=== PATIENT | female | born 1955 | race Caucasian/White ===

== ENCOUNTER → 2020-06-02 | Outpatient (CLI) | payer OTHER ==
[~2020-06-02] MED LIST: PRAVASTATIN SOD40 MG PO; SYNTHROID100 MCG PO
[2020-06-02 10:03] LABS: BUN/CREATININE RATIO 20 (0-10)
== END ==
LOC: LAB 09:00
PROVIDERS: Emergency Medicine
DX: E21.0 Primary hyperparathyroidism (principal); Z79.899 Other long term (current) drug therapy
CPT/HCPCS: 36415; 80053; 84439; 84443

== ENCOUNTER → 2021-02-04 | Outpatient (CLI) | payer OTHER | LOC: KOH-I 10:10 | DX: M25.512 Pain in left shoulder (principal) | CPT/HCPCS: 73030 ==

== ENCOUNTER 2021-07-30 18:06 | Emergency (ER) | payer OTHER ==
[2021-07-30 20:05] LABS: HEMOGLOBIN 13.4 gm/dl (12.3-15.3); RED BLOOD COUNT 4.23 M/UL (4.00-5.10); WHITE BLOOD COUNT 6.2 K/UL (4.5-11.0)
[2021-07-30 20:24] LABS: BUN/CREATININE RATIO 17 (0-10)
== END 2021-07-30 22:08 | disposition home or self-care (01) ==
LOC: ER1 18:06
PROVIDERS: Family Medicine
DX: R55 Syncope and collapse (principal); E78.5 Hyperlipidemia, unspecified; Z88.0 Allergy status to penicillin; Z88.5 Allergy status to narcotic agent
CPT/HCPCS: 80053; 82550; 82553; 83735; 84439; 84443; 84484; 85025; 93005; 99284

== ENCOUNTER → 2021-08-04 | Outpatient (CLI) | payer OTHER | LOC: HEART 5 13:40 | DX: R55 Syncope and collapse (principal) ==

== ENCOUNTER → 2022-01-03 | Outpatient (CLI) | payer OTHER | LOC: KOH-I 10:52 | DX: M54.50 Low back pain, unspecified (principal); M25.551 Pain in right hip; M25.561 Pain in right knee; M16.11 Unilateral primary osteoarthritis, right hip; M17.11 Unilateral primary osteoarthritis, right knee | CPT/HCPCS: 73502; 73562 ==

== ENCOUNTER → 2022-01-06 | Outpatient (CLI) | payer OTHER | LOC: KOH-I 12:19 | DX: M54.50 Low back pain, unspecified (principal); M25.561 Pain in right knee; M25.551 Pain in right hip; M47.816 Spondylosis without myelopathy or radiculopathy, lumbar region | CPT/HCPCS: 72100 ==